=== PATIENT | male | born 1980 | race Caucasian/White ===

== ENCOUNTER 2018-01-27 13:35 | Emergency (ER) | payer MEDICAID ==
[~2018-01-27] VITALS: Ht 175.3 cm; Wt 68.0 kg
[2018-01-27] MEDS ORDERED: KETOROLAC 30MG/ML VIAL IV ONE (14:30)
[2018-01-27] MEDS ORDERED: BACITRACIN ZINC OINT UDPKT TOP ONE (14:30)
[2018-01-27] MEDS ORDERED: TETANUS, DIPHTHERIA, PERTUSSIS VAC/PF 0.5ML (>7YR OLD) IM ONE (14:30)
[2018-01-27 17:31] VITALS: BP 111/59
== END 2018-01-27 17:36 | disposition home or self-care (01) ==
LOC: ER 13:47
DX: M25.562 Pain in left knee (principal); M25.561 Pain in right knee; M79.672 Pain in left foot; M54.5 Low back pain; R07.81 Pleurodynia; M47.12 Other spondylosis with myelopathy, cervical region
CPT/HCPCS: 71101; 72110; 72125; 73562; 73630; 90471; 90715; 96374; 99284; J1885; L1830; Z7610